=== PATIENT | female | born 1960 | race Caucasian/White ===

== ENCOUNTER 2017-01-13 13:06 | Emergency (ER) | payer MEDICAID, OTHER ==
[~2017-01-13] VITALS: Ht 165.1 cm; Wt 52.2 kg
[2017-01-13] MEDS ORDERED: PROCHLORPERAZINE EDISYLATE 5 MG/ML 2ML VIAL ONE (14:02)
[2017-01-13] MEDS ORDERED: PROCHLORPERAZINE EDISYLATE 5 MG/ML 2ML VIAL IV ONE ×2 (14:15→17:30)
[2017-01-13] MEDS ORDERED: LABETALOL HCL 5 MG/ML 4ML SYRINGE IV ONE (14:15)
[2017-01-13] MEDS ORDERED: DIAZEPAM 5 MG/ML 2ML SYRG IV ONE (14:15)
[2017-01-13 14:32] LABS: Basophils # (auto) 0 uL; Basophils % (auto) 0.2 % (0.0-2.0); Eosinophils # (auto) 0 uL; Eosinophils % (auto) 0.3 % (0.0-7.0); Hematocrit 49.9 % (36.0-46.0); Hemoglobin 16.5 g/dL (12.2-16.2); Lymphocytes # (auto) 1.1 uL; Lymphocytes % (auto) 11.4 % (10.0-50.0); Mean Corpuscular Hemoglobin 30.6 pg (28.0-32.0); Mean Corpuscular Hgb Conc. 33.1 g/dL (32.0-36.0); Mean Corpuscular Volume 92.5 fL (80.0-100.0); Monocytes # (auto) 0.3 uL; Monocytes % (auto) 2.8 % (0.0-12.0); Neutrophils # (auto) 7.9 uL; Neutrophils % (auto) 85.3 % (37.0-80.0); Platelet Count (auto) 369 10^3/uL (140-450); Red Cell Distribution Width 12.2 % (11.6-16.0); White Blood Cell 9.3 10^3/uL (4.4-10.8)
[2017-01-13 14:57] LABS: Urine Bilirubin Negative (Negative); Urine Blood 1+ /uL (Negative); Urine Color Yellow (Yellow); Urine Glucose Normal (Normal); Urine Ketone Negative (Negative); Urine Nitrite Negative (Negative); Urine RBC 5 /hpf (0 - 4); Urine Squamous Epithelial Cell MOD /hpf (<5); Urine Urobilinogen Normal (Negative); Urine pH 8.5 (5.0-8.0)
[2017-01-13 15:14] LABS: Albumin 3.8 g/dL (3.4-5.0); BUN/Creatinine Ratio 9.8; Bilirubin, Total 0.4 mg/dL (0.2-1.0); Calcium 9.5 mg/dL (8.5-10.1); Potassium 3.5 mmol/L (3.5-5.1); Total Protein 7.9 g/dL (6.4-8.2)
[2017-01-13] MEDS ORDERED: SODIUM CHLORIDE 0.9% 1,000 ML IV ONE (15:18)
[2017-01-13] MEDS ORDERED: NALBUPHINE HCL 10 MG/1ml INJECTION IV ONE (15:30)
[2017-01-13 15:42] LABS: Magnesium 2.3 mg/dL (1.6-2.6)
[2017-01-13] MEDS ORDERED: cloNIDine HCL 0.1 MG TAB PO ONE ×2 (15:45→20:15)
[2017-01-13] MEDS ORDERED: hydrALAZINE HCL 20 MG/ML VL IV ONE (17:30)
[2017-01-13] MEDS ORDERED: ONDANSETRON HCL 4 MG/2 ML VIAL IV ONE ×2 (18:30→23:45)
[2017-01-13 21:01] VITALS: BP 143/98
[2017-01-13] MEDS ORDERED: chlordiazePOXIDE HCL 25 MG CAP PO ONE (21:30)
[2017-01-14] MEDS ORDERED: ONDANSETRON ODT 4 MG TAB PO ONE (00:15)
== END 2017-01-14 00:12 | disposition home or self-care (01) ==
LOC: EDBD 13:06 → ER 13:11 → EDBD 13:11 → ER 01-14 00:12
DX: I10 Essential (primary) hypertension (principal); R11.2 Nausea with vomiting, unspecified; F17.210 Nicotine dependence, cigarettes, uncomplicated; R10.13 Epigastric pain
CPT/HCPCS: 36415; 74176; 80053; 80307; 81001; 81025; 83690; 83735; 85025; 93005; 94761; 96361; 96374; 96375; 96376; 99285; J0360; J0780; J2300; J2405; J3360; J3490; Q0162